=== PATIENT | female | born 1995 | race Two or more races ===

== ENCOUNTER 2018-05-12 15:24 | Emergency (ER) | payer MEDICAID ==
[2018-05-12 16:23] LABS: % BASOPHILS 0.3 % (0.0-2.0); % EOSINOPHILS 0.5 % (0.0-5.0); % LYMPHOCYTES 13.9 % (20.0-50.0); % MONOCYTES 6.8 % (2.0-10.0); % NEUTROPHILS 78.5 % (40.0-80.0); EOSINOPHILE ABSOLUTE 0.1 Th/cmm (0.1-0.4); HEMATOCRIT 35.9 % (41.0-60); HEMOGLOBIN 12.2 gm/dL (12-16); LYMPHOCYTE ABSOLUTE 1.7 Th/cmm (1.5-3.0); MEAN CELL VOLUME 91.9 fl (81-100); MEAN CORPUSCULAR HEMOGLOBIN 31.2 pg (27.0-31.0); MEAN PLATELET VOLUME 7.9 fl; MONOCYTE ABSOLUTE 0.9 Th/cmm (0.3-1.0); NEUTROPHILE ABSOLUTE 9.8 Th/cmm (1.8-8.0); PLATELET COUNT 222 Th/cmm (150-400); RED CELL DISTRIBUTION WIDTH 12.1 % (11.5-20.0); WHITE BLOOD COUNT 12.5 Th/cmm (4.8-10.8)
[2018-05-12 16:38] LABS: ANION GAP 11.5 (7.0-16.0); BUN - UREA NITROGEN 17 mg/dL (7-25); CARBON DIOXIDE 23.2 mEq/L (21.0-31.0); CHLORIDE 103 mEq/L (98-107); CREATININE - SERUM 0.6 mg/dL (0.6-1.2); GFR AFRICAN-AMERICAN > 60.0 ml/min (>90); GFR NON AFRICAN-AMERICAN > 60.0 ml/min; GLUCOSE 96 mg/dL (70-105); POTASSIUM SERUM 3.7 mEq/L (3.5-5.1); SODIUM SERUM 134 mEq/L (136-145)
--- NOTE | 2018-05-12 19:00 | ED Physician Chart ---
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 Allergies:: Allergies Allergy/AdvReac Type Severity Reaction Status Date / Time No Known Allergies Allergy Verified 05/12/18 16:01 Vitals:: Vital Signs - 8 hr 05/12/18 16:02 Temp 99.4 F HR 98 RR 18 BP 110/55 O2 Sat % 96 Historian:: Patient, Family Member Review:: Nurse's Note Reviewed ED Review of Systems - Review of Systems General/Constitutional: No fever, No chills, No weight loss, No weakness, No diaphoresis, No edema, No loss of appetite Skin: No skin lesions, No rash, No bruising Head: No headache, No light-headedness Eyes: No loss of vision, No pain, No diplopia ENT: No earache, No nasal drainage, No sore throat, No tinnitus Neck: No neck pain, No swelling, No thyromegaly, No stiffness, No mass noted Cardio Vascular: No chest pain, No palpitations, No PND, No orthopnea, No edema Pulmonary: No SOB, No cough, No sputum, No wheezing GI: No nausea, No vomiting, No diarrhea, No pain, No melena, No hematochezia, No constipation, No hematemesis G/U: No dysuria, No frequency, No hematuria, No nacturia Tap Out Operator: No vaginal discharge, Abnormal vaginal bleeding, No contraction Musculoskeletal: No bone or joint pain, No back pain, No muscle pain Endocrine: No polyuria, No polydipsia Psychiatric: No prior psych history, No depression, No anxiety, No suicidal ideation, No homicidal ideation, No auditory hallucination, No visual hallucination Hematopoietic: No bruising, No lymphadenopathy Allergic/Immuno: No urticaria, No angioedema Neurological: No syncope, No focal symptoms, No weakness, No paresthesia, No headache, No seizure, No dizziness, No confusion, No vertigo ED Past Medical History - Past Medical History Obtainable: Yes Past Medical History: No significant medical hx Family History: None Social History: Non Smoker, No Alcohol, No Drug Use, Surgical History: None Psychiatricy History: None Medication: Reviewed Family Medical History - Family Member Mother History Unknown: Yes ED Physical Exam - Physical Examination General/Constitutional: Awake, Well-developed, well-nourished, Alert, No distress, GCS 15, Non-toxic appearing, Ambulatory Head: Atraumatic Eyes: Lids, conjuctiva normal, PERRL, EOMI Skin: Nl inspection, No rash, No skin lesions, No ecchymosis, Well hydrated, No lymphadenopathy ENMT: External ears, nose nl, TM canals nl, Nasal exam nl, Lips, teeth, gums nl , Oropharynx nl, Tonsils nl Neck: Nontender, Full ROM w/o pain, No JVD, No nuchal rigidity, No bruit, No mass, No stridor Other Neck comments:: supple; no meningeal signs; no cervical tenderness; no bruits Respiratory: Nl effort/Exclusion, Clear to Auscultation, No Wheeze/Rhonchi/Rales Cardio Vascular: RRR, No murmur, gallop, rubs, NL S1 S2, Carotid/Femoral/Distal pulses equal bilaterally GI: No tenderness/rebounding/guarding, No organomegaly, No hernia, Normal BS's, Nondistended, No mass/bruits, No McBurney tenderness, Rectum exam nl Other GI comments:: no pulsatile masses : No CVA tenderness, NL external genitalia, No discharge Other comments:: no vaginal bleeding; Pelvic Exam: deferred by pt Extremities: No tenderness or effusion, Full ROM, normal strength in all extremities, No edema, Normal digits & nails Neuro/Psych: Alert/oriented, DTR's symmetric, Normal sensory exam, Normal motor strength, Judgement/insight normal, Mood normal, Normal gait, No focal deficits Other Neuro/Psych comments:: no focal signs Misc: Normal back, No paraspinal tenderness ED Labs/Radiology/EKG Results - Lab Results Results: Laboratory Tests 05/12/18 05/12/18 05/12/18 16:16 16:16 16:16 WBC 12.5 H RBC 3.90 Hgb 12.2 Hct 35.9 L MCV 91.9 MCH 31.2 H MCHC Differential 34.0 RDW 12.1 Plt Count 222 MPV 7.9 Neutrophils % 78.5 Lymphocytes % 13.9 L Monocytes % 6.8 Eosinophils % 0.5 Basophils % 0.3 Sodium 134 L Potassium 3.7 Chloride 103 Carbon Dioxide 23.2 Anion Gap 11.5 BUN 17 Creatinine 0.6 Est GFR ( Amer) > 60.0 Est GFR (Non-Af Amer) > 60.0 BUN/Creatinine Ratio 28.3 Glucose 96 Calcium 9.0 Serum , Qual POSITIVE H Comments:: Reviewed - Radiology Results Comments:: U/S: + IUP; no ectopic ; ED Septic Shock - . Is Septic Shock (SBP<90, OR Lactate>4 mmol\L) present?: No - <6hrs of presentation: Vital Signs: Vital Signs - 8 hr 05/12/18 16:02 Temp 99.4 F HR 98 RR 18 BP 110/55 O2 Sat % 96 ED Reassessment (Disposition) - Reassessment Reassessment:: pt tolerated po fluids well in ER; pt is asymptomatic upon discharge Reassessment Condition:: Improved - Diagnosis Diagnosis:: Dx: Vaginal Bleeding; Threatened ; IUP; - Aftercare/Follow up Instructions Aftercare/Follow-Up Instructions:: Counseled pt regarding lab results/diagnosis & need follow up, Refer to Discharge Instructions, Counseled pt & family regarding lab results/diagnosis & need follow up - Patient Disposition Discharge/Transfer:: Home Condition at Disposition:: Stable, Improved (RTER prn if existing s/s reoccur and/or get worse and/or any other new s/s occur; ACIs given for all above Dx; Strict Bed Rest; U/S Care Instructions; Refer to OB-SPRAY PAINTER HELPER Specialist/Heavy Line Technician EAN; F/U with PMD in one day or prn; RTER prn if concerned)
--- NOTE | 2018-05-13 09:35 | Diagnostic Imaging Report ---
Exam: Ultrasound exam of pelvis. HISTORY: Vaginal Spotting Prior exam: None Findings: Real-time ultrasound examination of the pelvis was performed multiple planes demonstrates single live intrauterine gestation with fetus in cephalic presentation. Placenta is anterior and grade 2 Cardiac activity is 140 bpm Amniotic fluid is normal AFI18.9 cm. The cervix closed at 3.8 cm. anatomy was not studied at this time. Serial measurements of the BPD 6.7 cm HC 25.1 cm A C 21.2 cm FL 5.1 cm The above measurements correspond to estimated gestational age of 26 weeks and 3 days. EDC 08/12/2018. IMPRESSION: Single live intrauterine gestation with fetus is in cephalic presentation estimated gestational age of 26 weeks 3 days.
== END 2018-05-12 18:35 ==
LOC: ER 15:24
DX: O20.0 Threatened abortion (principal); Z3A.27 27 weeks gestation of pregnancy
CPT/HCPCS: 36415-UA; 76811-TC; 80048-TC; 84702-TC; 84703-TC; 85025-TC